=== PATIENT | male | born 2000 | race Caucasian/White ===

== ENCOUNTER 2021-06-08 10:50 | Emergency (ER) | payer OTHER ==
[~2021-06-08] VITALS: Ht 172.7 cm; Wt 71.0 kg
[2021-06-08 13:30] VITALS: BP 127/68
[2021-06-08] MEDS ORDERED: ACETAMINOPHEN 325 MG TABLET PO ONE (13:30)
[2021-06-08] MEDS ORDERED: LIDOCAINE 5% TRANSDERMAL PATCH TD ONE (13:30)
[2021-06-08] MEDS ORDERED: IBUPROFEN 400 MG TABLET PO ONE (13:30)
== END 2021-06-08 14:51 | disposition home or self-care (01) ==
LOC: EMS 10:52
DX: R07.81 Pleurodynia (principal); R05.9 Cough, unspecified; R50.9 Fever, unspecified; Z20.822 Contact with and (suspected) exposure to COVID-19
CPT/HCPCS: 71045; 81002; 99284; U0003